=== PATIENT | female | born 1990 | race Caucasian/White ===

== ENCOUNTER 2020-03-19 16:35 | Inpatient (IN) | payer OTHER ==
[~2020-03-19] VITALS: Ht 167.6 cm; Wt 79.6 kg
[2020-03-19] MEDS ORDERED: SERT50TA12 PO (18:24)
[2020-03-19] MEDS ORDERED: TOPI100T37 PO (18:25)
[2020-03-19 19:14] LABS: COVID AG,FIA SOURCE NASOPHARYNGEAL
[2020-03-19 19:16] LABS: BASOPHILS % (AUTO) 0.9 % (0.0-2.0); EOSINOPHILS % (AUTO) 1.3 % (1.0-6.0); HEMATOCRIT 40.6 % (36-46); HEMOGLOBIN 13.5 g/dL (12.0-16.0); LYMPHOCYTES # (AUTO) 1.7 K/uL (1.0-4.8); LYMPHOCYTES % (AUTO) 23.6 % (22.0-44.0); MEAN CORPUSCULAR HGB CONC 33.3 G/dL (31.0-37.0); MEAN CORPUSCULAR VOLUME 87 fL (80-100); MONOCYTES # (AUTO) 0.6 K/uL (0.1-1.0); MONOCYTES % (AUTO) 8.9 % (2.0-9.0); NEUTROPHILS # (AUTO) 4.7 K/uL (1.8-7.7); NEUTROPHILS % (AUTO) 65.3 % (40.0-70.0); PLATELET COUNT (AUTO) 292 K/uL (150-450); RED BLOOD CELL COUNT(AUTO) 4.66 MIL/uL (4.00-5.20); RED CELL DISTRIBUTION WIDTH 13.6 % (11.5-14.5)
[2020-03-19 19:32] LABS: ANION GAP 8 mmol/L (8-16); CALCIUM, TOTAL 8.9 mg/dL (8.8-10.5); CARBON DIOXIDE 24 mmol/L (22-29); CHLORIDE 107 mmol/L (98-107); CREATININE 1.04 mg/dL (0.60-1.30); GLOMERULAR FILTR. RATE CALC > 60 mL/min (>60); GLUCOSE,RANDOM 102 mg/dL (70-110); POTASSIUM 3.6 mmol/L (3.5-5.1); SODIUM SERUM 139 mmol/L (136-145); UREA NITROGEN, BLOOD 13 mg/dL (7-18)
[2020-03-19 19:39] LABS: ALANINE AMINOTRANSFERASE 23 U/L (12-78); ALBUMIN 4.1 g/dL (3.4-5.0); ALKALINE PHOSPHATASE 104 U/L (46-116); ASPARTATE AMINOTRANSFERASE 14 U/L (15-37); BILIRUBIN,TOTAL 0.3 mg/dL (0.1-1.0); HCG,QUANTITATIVE 1 mIU/mL (0-6); TOTAL PROTEIN, SERUM 8.1 g/dL (6.4-8.2)
[2020-03-19 21:00] VITALS: BP 100/57
[2020-03-19] MEDS ORDERED: KETOROLAC TROMETHAMINE 15 MG/ML VIAL IVP PRN ×2 (22:00→22:15)
[2020-03-19] MEDS ORDERED: SODIUM CHLORIDE 0.9% 500 ML IV ONE (22:45)
[2020-03-20 08:39] VITALS: BP 92/65
[2020-03-20] MEDS: ENOXAPARIN SODIUM 40 MG/0.4 ML PF SYRINGE SQ SCH (09:38)
[2020-03-20] MEDS: TraMADol HCL 50 MG TABLET PO PRN (19:41)
[2020-03-20 21:00] VITALS: BP 102/71
[2020-03-20] MEDS: ONDANSETRON HCL 4 MG/2 ML VIAL IVP PRN (21:53)
[2020-03-21] MEDS: TraMADol HCL 50 MG TABLET PO PRN ×2 (05:56→13:24)
[2020-03-21] MEDS: ENOXAPARIN SODIUM 40 MG/0.4 ML PF SYRINGE SQ SCH (08:56)
[2020-03-21 09:55] VITALS: BP 95/68
[2020-03-21] MEDS: SERTRALINE HCL 100 MG TABLET PO SCH (11:29)
[2020-03-21] MEDS: ONDANSETRON HCL 4 MG/2 ML VIAL IVP PRN (14:59)
[2020-03-21 19:34] VITALS: BP 108/71
[2020-03-21] MEDS: MELATONIN 5 MG TABLET PO SCH (20:44)
[2020-03-21] MEDS: TOPIRAMATE 100 MG TABLET PO SCH (20:44)
[2020-03-21] MEDS: MIRTAZAPINE 30 MG TABLET PO SCH (20:44)
[2020-03-22 04:00] VITALS: BP 97/50
[2020-03-22] MEDS: SERTRALINE HCL 100 MG TABLET PO SCH (08:14)
[2020-03-22] MEDS: ENOXAPARIN SODIUM 40 MG/0.4 ML PF SYRINGE SQ SCH (08:15)
[2020-03-22 10:22] VITALS: BP 105/59
[2020-03-22] MEDS: HYDROmorphone 2 MG/ML SYRINGE IVP PRN ×2 (18:03→18:16)
[2020-03-22 19:30] VITALS: BP 102/66
[2020-03-22] MEDS: TOPIRAMATE 100 MG TABLET PO SCH (21:19)
[2020-03-22] MEDS: MIRTAZAPINE 30 MG TABLET PO SCH (21:19)
[2020-03-22] MEDS: MELATONIN 5 MG TABLET PO SCH (21:19)
[2020-03-23 05:19] VITALS: BP 87/47
[2020-03-23] MEDS: HYDROmorphone 2 MG/ML SYRINGE IVP PRN ×3 (07:56→22:53)
[2020-03-23] MEDS: ENOXAPARIN SODIUM 40 MG/0.4 ML PF SYRINGE SQ SCH ×2 (08:06→08:09)
[2020-03-23] MEDS: SERTRALINE HCL 100 MG TABLET PO SCH (08:06)
[2020-03-23 08:13] VITALS: BP 103/33
[2020-03-23] MEDS ORDERED: MULTIVITAMINS, THERAPEUTIC TABLET PO ONE (10:00)
[2020-03-23] MEDS ORDERED: VITAMINS A & D 5 GM OINTMENT PACKET TP ONE (10:00)
[2020-03-23 19:40] VITALS: BP 102/60
[2020-03-23] MEDS: MELATONIN 5 MG TABLET PO SCH (20:30)
[2020-03-23] MEDS: MIRTAZAPINE 30 MG TABLET PO SCH (20:30)
[2020-03-23] MEDS: TOPIRAMATE 100 MG TABLET PO SCH (20:30)
[2020-03-23] MEDS: VITAMINS A & D 113 GM OINTMENT TP SCH (21:00)
[2020-03-24] MEDS: HYDROmorphone 2 MG/ML SYRINGE IVP PRN ×3 (06:20→21:59)
[2020-03-24 07:40] VITALS: BP 99/59
[2020-03-24] MEDS: VITAMINS A & D 113 GM OINTMENT TP SCH ×2 (09:00→20:12)
[2020-03-24] MEDS: SERTRALINE HCL 100 MG TABLET PO SCH (09:38)
[2020-03-24] MEDS: ENOXAPARIN SODIUM 40 MG/0.4 ML PF SYRINGE SQ SCH (09:38)
[2020-03-24] MEDS: MULTIVITAMINS, THERAPEUTIC TABLET PO SCH (09:39)
[2020-03-24] MEDS: ONDANSETRON HCL 4 MG/2 ML VIAL IVP PRN (15:52)
[2020-03-24] MEDS: TraMADol HCL 50 MG TABLET PO PRN (17:10)
[2020-03-24] MEDS: MIRTAZAPINE 30 MG TABLET PO SCH (20:12)
[2020-03-24] MEDS: TOPIRAMATE 100 MG TABLET PO SCH (20:12)
[2020-03-24 20:30] VITALS: BP 92/57
[2020-03-24] MEDS: MELATONIN 5 MG TABLET PO SCH (21:59)
[2020-03-25] MEDS: HYDROmorphone 2 MG/ML SYRINGE IVP PRN ×2 (04:03→13:33)
[2020-03-25 05:24] VITALS: BP 96/57
[2020-03-25 08:20] VITALS: BP 90/59
[2020-03-25] MEDS: ENOXAPARIN SODIUM 40 MG/0.4 ML PF SYRINGE SQ SCH (08:52)
[2020-03-25] MEDS: SERTRALINE HCL 100 MG TABLET PO SCH (08:53)
[2020-03-25] MEDS: MULTIVITAMINS, THERAPEUTIC TABLET PO SCH (08:53)
[2020-03-25] MEDS: VITAMINS A & D 113 GM OINTMENT TP SCH ×2 (08:53→20:35)
[2020-03-25 10:23] VITALS: BP 86/49
[2020-03-25] MEDS ORDERED: TOPI100T37 PO (11:01)
[2020-03-25] MEDS ORDERED: MELA5TAB3 PO (11:05)
[2020-03-25] MEDS ORDERED: MIRT30 PO (11:06)
[2020-03-25] MEDS ORDERED: MULT-1203 PO (13:00)
[2020-03-25] MEDS ORDERED: VIT5OINT3 TP (13:02)
[2020-03-25 15:55] VITALS: BP 102/65
[2020-03-25 20:24] VITALS: BP 104/53
[2020-03-25] MEDS: TraMADol HCL 50 MG TABLET PO PRN (20:35)
[2020-03-25] MEDS: TOPIRAMATE 100 MG TABLET PO SCH (20:35)
[2020-03-25] MEDS: MELATONIN 5 MG TABLET PO SCH (20:35)
[2020-03-25] MEDS: MIRTAZAPINE 30 MG TABLET PO SCH (20:35)
[2020-03-26 04:16] VITALS: BP 108/67
[2020-03-26] MEDS: TraMADol HCL 50 MG TABLET PO PRN ×3 (04:33→21:54)
[2020-03-26 08:50] VITALS: BP 102/80
[2020-03-26] MEDS: MULTIVITAMINS, THERAPEUTIC TABLET PO SCH (09:04)
[2020-03-26] MEDS: SERTRALINE HCL 100 MG TABLET PO SCH (09:05)
[2020-03-26] MEDS: VITAMINS A & D 113 GM OINTMENT TP SCH ×2 (09:05→21:01)
[2020-03-26] MEDS: ENOXAPARIN SODIUM 40 MG/0.4 ML PF SYRINGE SQ SCH (09:05)
[2020-03-26] MEDS ORDERED: ONDANSETRON HCL 4 MG TABLET PO PRN (11:45)
[2020-03-26] MEDS: MELATONIN 5 MG TABLET PO SCH (20:59)
[2020-03-26] MEDS: TOPIRAMATE 100 MG TABLET PO SCH (20:59)
[2020-03-26] MEDS: MIRTAZAPINE 30 MG TABLET PO SCH (20:59)
[2020-03-27] MEDS: SERTRALINE HCL 100 MG TABLET PO SCH (08:25)
[2020-03-27] MEDS: MULTIVITAMINS, THERAPEUTIC TABLET PO SCH (08:25)
[2020-03-27] MEDS: VITAMINS A & D 113 GM OINTMENT TP SCH ×2 (08:25→20:07)
[2020-03-27] MEDS: ENOXAPARIN SODIUM 40 MG/0.4 ML PF SYRINGE SQ SCH (08:25)
[2020-03-27] MEDS: TraMADol HCL 50 MG TABLET PO PRN ×2 (08:28→17:00)
[2020-03-27 09:08] VITALS: BP 95/66
[2020-03-27] MEDS ORDERED: ACETAMINOPHEN 325 MG TABLET PO PRN (17:00)
[2020-03-27] MEDS: MIRTAZAPINE 30 MG TABLET PO SCH (20:07)
[2020-03-27] MEDS: TOPIRAMATE 100 MG TABLET PO SCH (20:07)
[2020-03-27] MEDS: MELATONIN 5 MG TABLET PO SCH (20:07)
[2020-03-27 20:10] VITALS: BP 111/61
[2020-03-28 04:00] VITALS: BP 99/64
[2020-03-28] MEDS: TraMADol HCL 50 MG TABLET PO PRN ×3 (04:07→16:44)
[2020-03-28] MEDS: ENOXAPARIN SODIUM 40 MG/0.4 ML PF SYRINGE SQ SCH (08:00)
[2020-03-28] MEDS: MULTIVITAMINS, THERAPEUTIC TABLET PO SCH (08:01)
[2020-03-28] MEDS: SERTRALINE HCL 100 MG TABLET PO SCH (08:01)
[2020-03-28] MEDS: VITAMINS A & D 113 GM OINTMENT TP SCH ×2 (08:02→20:45)
[2020-03-28 08:28] VITALS: BP 107/62
[2020-03-28 20:06] VITALS: BP 95/59
[2020-03-28] MEDS: TOPIRAMATE 100 MG TABLET PO SCH (20:45)
[2020-03-28] MEDS: MELATONIN 5 MG TABLET PO SCH (20:45)
[2020-03-28] MEDS: MIRTAZAPINE 30 MG TABLET PO SCH (20:45)
[2020-03-29 04:57] VITALS: BP 104/59
[2020-03-29 07:53] VITALS: BP 102/81
[2020-03-29] MEDS: MULTIVITAMINS, THERAPEUTIC TABLET PO SCH (09:07)
[2020-03-29] MEDS: SERTRALINE HCL 100 MG TABLET PO SCH (09:08)
[2020-03-29] MEDS: ENOXAPARIN SODIUM 40 MG/0.4 ML PF SYRINGE SQ SCH (09:08)
[2020-03-29] MEDS: TraMADol HCL 50 MG TABLET PO PRN (09:24)
[2020-03-29] MEDS: VITAMINS A & D 113 GM OINTMENT TP SCH (09:28)
== END 2020-03-29 12:20 | DRG 882 ==
LOC: EMS 16:35 → 6S 18:51
PROVIDERS: ADMIT Internal Medicine; ATTEND Internal Medicine
DX: F43.12 Post-traumatic stress disorder, chronic (principal); S93.401A Sprain of unspecified ligament of right ankle, initial encounter; F41.9 Anxiety disorder, unspecified; F32.9 Major depressive disorder, single episode, unspecified; Y04.0XXA Assault by unarmed brawl or fight, initial encounter; Z20.828 Contact with and (suspected) exposure to other viral communicable diseases; Z91.5 Personal history of self-harm; Y93.89 Activity, other specified; Y92.89 Other specified places as the place of occurrence of the external cause; Y99.8 Other external cause status
CPT/HCPCS: 29540; 73721; 87426; 97110; 97116; 97163; G0480; J1170; J1650; J2405; J7040; Q0162